=== PATIENT | female | born 1985 | race Hispanic/Latino ===

== ENCOUNTER 2022-02-19 20:14 | Outpatient (CLI) | payer OTHER ==
[2022-02-19 21:39] VITALS: BP 136/80
== END 2022-02-19 22:00 | disposition home or self-care (01) ==
LOC: TRG 20:14 → OB 20:15 → APU 20:34 → TRG 22:00
PROVIDERS: ATTEND Obstetrics & Gynecology
DX: O62.9 Abnormality of forces of labor, unspecified (principal); Z3A.38 38 weeks gestation of pregnancy
CPT/HCPCS: Q0177

== ENCOUNTER 2022-02-21 04:03 | Inpatient (IN) | payer OTHER ==
[2022-02-21] MEDS ORDERED: MINERAL OIL 30 ML ORAL LIQD PO PRN (06:30)
[2022-02-21] MEDS ORDERED: OXYTOCIN 10 UNIT/1 ML INJ IM PRN (06:30)
[2022-02-21] MEDS ORDERED: LIDOCAINE (2%) 20 MG/1 ML VIAL 20 ML MDV INFILTRATI ONE (06:30)
[2022-02-21] MEDS ORDERED: LOPERAMIDE 2 MG CAP PO PRN (06:30)
[2022-02-21] MEDS ORDERED: CARBOPROST TROMETHAMINE 250 MCG/1 ML INJ IM PRN (06:30)
[2022-02-21] MEDS ORDERED: TERBUTALINE 1 MG/1 ML INJ SUB-Q PRN (06:30)
[2022-02-21] MEDS ORDERED: fentaNYL 100 MCG/2 ML INJ IV PRN (06:30)
[2022-02-21] MEDS ORDERED: NalbUPHINE 10 MG/1 ML INJ IV PRN ×2 (06:30→08:57)
[2022-02-21] MEDS ORDERED: miSOPROStol 200 MCG TAB PR PRN (06:30)
[2022-02-21] MEDS ORDERED: ACETAMINOPHEN 325 MG TAB PO PRN ×2 (06:30→18:10)
[2022-02-21] MEDS ORDERED: METHYLERGONOVINE MALEATE 0.2 MG/ML VIAL IM PRN (06:30)
[2022-02-21] MEDS ORDERED: ONDANSETRON 4 MG/2 ML INJ IV PRN ×2 (06:30→08:57)
[2022-02-21] MEDS ORDERED: ePHEDrine SULFATE 50 MG/1 ML INJ IV PRN ×2 (06:30→08:57)
--- NOTE | 2022-02-21 06:30 | History and Physical Report ---
History of Present Illness Date of examination: 02/21/22 Date of admission: 02/21/2022 Chief complaint: Labor contractions History of present illness: EDC Calculations LMP: 03/01/2022 Past History : 2 Term Births: 0 Premature Births: 1 Living Children: 1 Para: 1 Mult. Births: 0 Prev : 0 Prev. attempt? 0 Aborta: 0 Elect. Ab: 0 Spont. 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 Quit 01/2020. 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 Quit 01/2020. Patient is single Infection History Hx of STD: gonorrhea HIV Risk Eval: no Hepatitis B Risk Eval: low risk Personal hx. of genital herpes: yes Rash, Viral, or Febrile illness since last LMP? no Varicella/Chicken Pox Status: Previous Disease TB Risk: no Genetic History Congenital Heart Defect: Mom: no Dad: no Leonie Disease: Mom: no Dad: no Thalassemia Mom: no Dad: no Neural Tube Defect Mom: no Dad: no Down's Syndrome Mom: no Dad: no Papi-Sachs Mom: no Dad: no Sickle Cell Disease/Trait Mom: no Dad: no Hemophilia Mom: no Dad: no Muscular Dystrophy Mom: no Dad: no Cystic Fibrosis Mom: no Dad: no Elizabeth Chorea Mom: no Dad: no Mental Retardation Mom: no Dad: no Fragile X Mom: no Dad: no Other Genetic/Chromosomal Disorder Mom: no Dad: no Child w/other defect Mom: no Dad: no Comments/Counseling: Pt's daughter has Emery's Syndrome Enviromental Exposures Enviromental Exposures Reviewed Xray Exposure: no Medication, drug, or alcohol use since LMP: no Chemical/Other Exposure: no Exposure to Cat Liter: yes Hx of Parvovirus (Fifth Disease): no Occupational Exposure to Children: none 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 Medications (reviewed today): None Current Allergies (reviewed today): * SULFUR (Critical) Past History Past Medical History: other (see HPI) Past Surgical History: other (see HPI) 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 (see HPI) Family/Genetic History: other (see HPI) - Obstetrical History Expected Date of Delivery: 03/01/22 Actual Gestation: 38 Week(s) 6 Day(s) : 2 Para: 1 Hx # Term Pregnancies: 0 Number of Pregnancies: 1 Spontaneous Abortions: 0 Induced : 0 Number of Living Children: 1 Medications and Allergies Allergies Allergy/AdvReac Type Severity Reaction Status Date / Time Sulfa (Sulfonamide Allergy Unknown Verified 02/21/22 04:45 Antibiotics) Review of Systems All systems: negative Gastrointestinal: abdominal pain (CTX) - Vital Signs Vital signs: Vital Signs Pulse BP Pulse Ox 99 H 144/94 95 02/21/22 04:39 02/21/22 04:39 02/21/22 04:39 Temp Pulse Resp BP Pulse Ox 98.0 F 96 H 16 139/88 97 02/21/22 04:47 02/21/22 06:21 02/21/22 04:47 02/21/22 06:13 02/21/22 06:21 - Physical Exam Breasts: Positive: normal Cardiovascular: Regular rate Lungs: Positive: Normal air movement Abdomen: Positive: normal appearance Genitourinary (Female): Positive: normal external genitalia, normal perenium Uterus: Positive: normal size, normal contour Anus/Rectum: Positive: normal perianal skin Extremities: Positive: normal Deep Tendon Reflex Grade: Normal +2 - Obstetrical FHR: category 1 Uterine Contraction Monitor Mode: External Cervical Dilatation: 4 Cervical Effacement Percentage: 50 station: -2 Uterine Contraction Pattern: Regular Uterine Tone Measurement Phase: Contraction Uterine Contraction Intensity: Moderate Results Result Diagrams: 02/21/22 07:44 02/21/22 07:44 All other labs normal. Assessment and Plan 36 y/o @ 38+6 weeks presented with painful ctx q4min, while in triage she changed her cervix from 2cms to 4cms. b/p noted to be elevated w/o hx of htn. no complaints of DAMON/visual changes or epigastric pain. - Patient Problems (1) 38 weeks gestation of Current Visit: Yes Status: Acute Plan to address problem: Expectant management Pain management (2) Elevated blood pressure reading Current Visit: Yes Status: Acute Plan to address problem: pre-e labs ordered will continue to monitor closely and treat accordingly.
[2022-02-21] MEDS ORDERED: OXYTOCIN DRIP 30 UNITS/500 ML BAG IV SCH ×2 (07:00)
[2022-02-21] MEDS: LACTATED RINGERS 1,000 ML IV SCH ×2 (08:20→09:14)
[2022-02-21 08:52] LABS: Alanine Aminotransferase 19 units/L (7-56); Uric Acid 3.6 mg/dL (3.5-7.6)
[2022-02-21] MEDS ORDERED: NALOXONE 2 MG/2 ML INJ IV PRN (08:57)
[2022-02-21] MEDS ORDERED: diphenhydrAMINE 50 MG/ML VIAL IV PRN (08:57)
[2022-02-21] MEDS ORDERED: fentaNYL-BUPIV 2 MCG/ML-0.125% 200 MCG/100 ML BAG EPIDURAL SCH (09:00)
[2022-02-21 09:04] LABS: Hematocrit 37.1 % (30.3-42.9); Hemoglobin 12.8 gm/dl (10.1-14.3); Mean Corpuscular HGB Conc 34 % (30-34); Mean Corpuscular Volume 97 fl (79-97); Platelet Count 234 K/mm3 (140-440); Red Blood Count 3.82 M/mm3 (3.65-5.03); Red Cell Distribution Width 15.2 % (13.2-15.2)
--- NOTE | 2022-02-21 09:37 | Anesthesia Consultation ---
Anesthesia Consult and Med Hx Date of service: 02/21/22 - Airway Anesthetic Teeth Evaluation: Good ROM Head & Neck: Adequate Mental/Hyoid Distance: Adequate Mallampati Class: Class II Intubation Access Assessment: Probably Good - Pulmonary Exam CTA: Yes - Cardiac Exam Cardiac Exam: RRR - Pre-Operative Health Status ASA Pre-Surgery Classification: ASA2 Proposed Anesthetic Plan: Epidural - Pulmonary Hx Smoking: No Hx Asthma: No COPD: No Hx Pneumonia: No Hx Sleep Apnea: No - Cardiovascular System Hx Hypertension: No Hx Heart Attack/AMI: No Hx Angina: No - Gastrointestinal Hx Gastroesophageal Reflux Disease: No - Endocrine Hx Renal Disease: No Hx End Stage Renal Disease: No Hx Liver Disease: No Hx Insulin Dependent Diabetes: No Hx Non-Insulin Dependent Diabetes: No - Other Systems Hx Alcohol Use: No Hx Obesity: Yes
--- NOTE | 2022-02-21 09:38 | Progress Note ---
Labor Epidural - Labor Epidural Start Time: 09:17 Stop Time: 09:33 Performed by:: ARACELI BORDEN (Kerry VILLEDA) Procedure: Patient is requesting epidural for labor and pain. H&P, labs were reviewed. Patient IDed, all questions and concerns were answered, and consent was signed. Timeout was performed at bedside. Patient in sitting position. Sterile prep and drape was performed. 3ml of 1% lidocaine skin wheal at L[3]- L [4]. 17-gau ge Tuohy epidural needle was advanced to loss of resistance with air technique 7cm. Negative CSF negative blood. Epidural catheter advanced to [12] centimeters. [negative] Aspiration [negative] test dose. Sterile dressing applied. Patient tolerated procedure.
--- NOTE | 2022-02-21 09:57 | Progress Note ---
Assessment and Plan Pt in bed, just recently received epidural. States ctx pain is better. SVE /-2 bloody show noted. Expectant management for now. Anticipate . CRISTINA Rios CNM - Patient Problems (1) 38 weeks gestation of Current Visit: Yes Status: Acute (2) Elevated blood pressure reading Current Visit: Yes Status: Acute Plan to address problem: pre-e labs ordered will continue to monitor closely and treat accordingly. Subjective - Subjective Date of service: 02/21/22 Principal diagnosis: IUP @ 39+6; labor Interval history: EDC Calculations LMP: 03/01/2022 Past History : 2 Term Births: 0 Premature Births: 1 Living Children: 1 Para: 1 Mult. Births: 0 Prev : 0 Prev. attempt? 0 Aborta: 0 Elect. Ab: 0 Spont. 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 Quit 01/2020. 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 Quit 01/2020. Patient is single Infection History Hx of STD: gonorrhea HIV Risk Eval: no Hepatitis B Risk Eval: low risk Personal hx. of genital herpes: yes Rash, Viral, or Febrile illness since last LMP? no Varicella/Chicken Pox Status: Previous Disease TB Risk: no Genetic History Congenital Heart Defect: Mom: no Dad: no Leonie Disease: Mom: no Dad: no Thalassemia Mom: no Dad: no Neural Tube Defect Mom: no Dad: no Down's Syndrome Mom: no Dad: no Papi-Sachs Mom: no Dad: no Sickle Cell Disease/Trait Mom: no Dad: no Hemophilia Mom: no Dad: no Muscular Dystrophy Mom: no Dad: no Cystic Fibrosis Mom: no Dad: no Elizabeth Chorea Mom: no Dad: no Mental Retardation Mom: no Dad: no Fragile X Mom: no Dad: no Other Genetic/Chromosomal Disorder Mom: no Dad: no Child w/other defect Mom: no Dad: no Comments/Counseling: Pt's daughter has Emery's Syndrome Enviromental Exposures Enviromental Exposures Reviewed Xray Exposure: no Medication, drug, or alcohol use since LMP: no Chemical/Other Exposure: no Exposure to Cat Liter: yes Hx of Parvovirus (Fifth Disease): no Occupational Exposure to Children: 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 Medications (reviewed today): None Current Allergies (reviewed today): * SULFUR (Critical) Patient reports: movement normal, no new complaints, no loss of fluid Objective - Vital Signs Vital Signs: Vital Signs - 12hr 02/21/22 02/21/22 02/21/22 04:39 04:44 04:47 Temperature 98.0 F Pulse Rate 99 H 101 H Respiratory 16 Rate Blood Pressure 144/94 O2 Sat by Pulse 95 96 Oximetry 02/21/22 02/21/22 02/21/22 04:49 04:54 04:59 Temperature Pulse Rate 95 H 97 H 98 H Respiratory Rate Blood Pressure O2 Sat by Pulse 97 97 97 Oximetry 02/21/22 02/21/22 02/21/22 05:04 05:11 05:13 Temperature Pulse Rate 99 H 93 H 92 H Respiratory Rate Blood Pressure 181/90 O2 Sat by Pulse 96 97 94 Oximetry 02/21/22 02/21/22 02/21/22 05:16 05:21 05:23 Temperature Pulse Rate 84 97 H 90 Respiratory Rate Blood Pressure 134/63 O2 Sat by Pulse 99 95 Oximetry 02/21/22 02/21/22 02/21/22 05:25 05:26 05:31 Temperature Pulse Rate 95 H 95 H 91 H Respiratory Rate Blood Pressure O2 Sat by Pulse 91 95 93 Oximetry 02/21/22 02/21/22 02/21/22 05:36 05:41 05:46 Temperature Pulse Rate 86 91 H 84 Respiratory Rate Blood Pressure O2 Sat by Pulse 98 96 98 Oximetry 02/21/22 02/21/22 02/21/22 05:47 05:51 05:56 Temperature Pulse Rate 89 86 80 Respiratory Rate Blood Pressure O2 Sat by Pulse 94 98 99 Oximetry 02/21/22 02/21/22 02/21/22 06:01 06:06 06:11 Temperature Pulse Rate 93 H 84 90 Respiratory Rate Blood Pressure O2 Sat by Pulse 97 98 97 Oximetry 02/21/22 02/21/22 02/21/22 06:12 06:13 06:16 Temperature Pulse Rate 81 87 96 H Respiratory Rate Blood Pressure 139/88 O2 Sat by Pulse 91 98 Oximetry 02/21/22 02/21/22 02/21/22 06:21 06:25 06:26 Temperature Pulse Rate 96 H 91 H 96 H Respiratory Rate Blood Pressure O2 Sat by Pulse 97 90 96 Oximetry 02/21/22 02/21/22 02/21/22 06:31 06:35 06:36 Temperature Pulse Rate 90 72 96 H Respiratory Rate Blood Pressure O2 Sat by Pulse 97 94 97 Oximetry 02/21/22 02/21/22 02/21/22 06:40 06:41 06:46 Temperature Pulse Rate 90 89 88 Respiratory Rate Blood Pressure O2 Sat by Pulse 94 95 97 Oximetry 02/21/22 02/21/22 02/21/22 06:51 06:56 07:01 Temperature Pulse Rate 84 96 H 95 H Respiratory Rate Blood Pressure O2 Sat by Pulse 97 97 97 Oximetry 02/21/22 02/21/22 02/21/22 08:50 09:15 09:31 Temperature Pulse Rate 70 85 74 Respiratory Rate Blood Pressure 180/100 125/81 O2 Sat by Pulse 98 Oximetry 02/21/22 02/21/22 02/21/22 09:32 09:34 09:36 Temperature Pulse Rate 81 85 88 Respiratory Rate Blood Pressure 137/75 140/77 O2 Sat by Pulse 97 Oximetry 02/21/22 02/21/22 02/21/22 09:37 09:38 09:40 Temperature Pulse Rate 90 91 H 98 H Respiratory Rate Blood Pressure 131/77 138/80 127/77 O2 Sat by Pulse 93 Oximetry 02/21/22 02/21/22 02/21/22 09:41 09:42 09:43 Temperature Pulse Rate 94 H 90 102 H Respiratory Rate Blood Pressure 126/71 O2 Sat by Pulse 96 93 Oximetry 02/21/22 02/21/22 02/21/22 09:44 09:46 09:48 Temperature Pulse Rate 90 94 H 95 H Respiratory Rate Blood Pressure 123/75 128/72 129/67 O2 Sat by Pulse 95 Oximetry 02/21/22 09:50 Temperature Pulse Rate 84 Respiratory Rate Blood Pressure 129/76 O2 Sat by Pulse 94 Oximetry - Exam Breasts: normal Abdomen: Present: normal appearance, soft FHR: category 1 Uterine Contraction Monitor Mode: External Cervical Dilatation: 6 Cervical Effacement Percentage: 90 station: -2 Uterine Contraction Duration: 60-90 Uterine Contraction Pattern: Regular Uterine Tone Measurement Phase: Resting Uterine Contraction Intensity: Moderate Extremities: normal - Labs Labs: Abnormal Labs 02/21/22 02/21/22 07:44 07:44 WBC 17.8 H MCH 33 H Creatinine 0.4 L Lactate Dehydrogenase 193 H Laboratory Results - last 24 hr 02/21/22 02/21/22 02/21/22 07:44 07:44 07:44 WBC 17.8 H RBC 3.82 Hgb 12.8 Hct 37.1 MCV 97 MCH 33 H MCHC 34 RDW 15.2 Plt Count 234 Creatinine 0.4 L Estimated GFR > 60 Uric Acid 3.6 AST 17 ALT 19 Lactate Dehydrogenase 193 H Blood Type A POSITIVE Antibody Screen Negative
[2022-02-21] MEDS ORDERED: LACTATED RINGERS 250 ML IV SOLN IV ONE (10:00)
--- NOTE | 2022-02-21 12:27 | Progress Note ---
Assessment and Plan Pt in bed resting quietly, no concerns at this time. Discussed AROM and IUPC to better monitor ctx. Agrees to plan of care. SVE /0, AROM clear, IUPC inserted without difficulty. Anticipate . CRISTINA Rios CNM - Patient Problems (1) 38 weeks gestation of Current Visit: Yes Status: Acute Plan to address problem: Expectant management Epidural for pain management AROM-Clear (2) Elevated blood pressure reading Current Visit: Yes Status: Acute Plan to address problem: will continue to monitor closely and treat accordingly. Subjective - Subjective Date of service: 02/21/22 Principal diagnosis: IUP @ 39+6; labor Interval history: EDC Calculations LMP: 03/01/2022 Past History : 2 Term Births: 0 Premature Births: 1 Living Children: 1 Para: 1 Mult. Births: 0 Prev : 0 Prev. attempt? 0 Aborta: 0 Elect. Ab: 0 Spont. 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 Quit 01/2020. 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 Quit 01/2020. Patient is single Infection History Hx of STD: gonorrhea HIV Risk Eval: no Hepatitis B Risk Eval: low risk Personal hx. of genital herpes: yes Rash, Viral, or Febrile illness since last LMP? no Varicella/Chicken Pox Status: Previous Disease TB Risk: no Genetic History Congenital Heart Defect: Mom: no Dad: no Leonie Disease: Mom: no Dad: no Thalassemia Mom: no Dad: no Neural Tube Defect Mom: no Dad: no Down's Syndrome Mom: no Dad: no Papi-Sachs Mom: no Dad: no Sickle Cell Disease/Trait Mom: no Dad: no Hemophilia Mom: no Dad: no Muscular Dystrophy Mom: no Dad: no Cystic Fibrosis Mom: no Dad: no Elizabeth Chorea Mom: no Dad: no Mental Retardation Mom: no Dad: no Fragile X Mom: no Dad: no Other Genetic/Chromosomal Disorder Mom: no Dad: no Child w/other defect Mom: no Dad: no Comments/Counseling: Pt's daughter has Emery's Syndrome Enviromental Exposures Enviromental Exposures Reviewed Xray Exposure: no Medication, drug, or alcohol use since LMP: no Chemical/Other Exposure: no Exposure to Cat Liter: yes Hx of Parvovirus (Fifth Disease): no Occupational Exposure to Children: none 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 (reviewed 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): None Current Allergies (reviewed today): * SULFUR (Critical) Patient reports: movement normal, no new complaints, no loss of fluid Objective - Vital Signs Vital Signs: Vital Signs - 12hr 02/21/22 02/21/22 02/21/22 04:39 04:44 04:47 Temperature 98.0 F Pulse Rate 99 H 101 H Respiratory 16 Rate Blood Pressure 144/94 O2 Sat by Pulse 95 96 Oximetry 02/21/22 02/21/22 02/21/22 04:49 04:54 04:59 Temperature Pulse Rate 95 H 97 H 98 H Respiratory Rate Blood Pressure O2 Sat by Pulse 97 97 97 Oximetry 02/21/22 02/21/22 02/21/22 05:04 05:11 05:13 Temperature Pulse Rate 99 H 93 H 92 H Respiratory Rate Blood Pressure 181/90 O2 Sat by Pulse 96 97 94 Oximetry 02/21/22 02/21/22 02/21/22 05:16 05:21 05:23 Temperature Pulse Rate 84 97 H 90 Respiratory Rate Blood Pressure 134/63 O2 Sat by Pulse 99 95 Oximetry 02/21/22 02/21/22 02/21/22 05:25 05:26 05:31 Temperature Pulse Rate 95 H 95 H 91 H Respiratory Rate Blood Pressure O2 Sat by Pulse 91 95 93 Oximetry 02/21/22 02/21/22 02/21/22 05:36 05:41 05:46 Temperature Pulse Rate 86 91 H 84 Respiratory Rate Blood Pressure O2 Sat by Pulse 98 96 98 Oximetry 02/21/22 02/21/22 02/21/22 05:47 05:51 05:56 Temperature Pulse Rate 89 86 80 Respiratory Rate Blood Pressure O2 Sat by Pulse 94 98 99 Oximetry 02/21/22 02/21/22 02/21/22 06:01 06:06 06:11 Temperature Pulse Rate 93 H 84 90 Respiratory Rate Blood Pressure O2 Sat by Pulse 97 98 97 Oximetry 02/21/22 02/21/22 02/21/22 06:12 06:13 06:16 Temperature Pulse Rate 81 87 96 H Respiratory Rate Blood Pressure 139/88 O2 Sat by Pulse 91 98 Oximetry 02/21/22 02/21/22 02/21/22 06:21 06:25 06:26 Temperature Pulse Rate 96 H 91 H 96 H Respiratory Rate Blood Pressure O2 Sat by Pulse 97 90 96 Oximetry 02/21/22 02/21/22 02/21/22 06:31 06:35 06:36 Temperature Pulse Rate 90 72 96 H Respiratory Rate Blood Pressure O2 Sat by Pulse 97 94 97 Oximetry 02/21/22 02/21/22 02/21/22 06:40 06:41 06:46 Temperature Pulse Rate 90 89 88 Respiratory Rate Blood Pressure O2 Sat by Pulse 94 95 97 Oximetry 02/21/22 02/21/22 02/21/22 06:51 06:56 07:01 Temperature Pulse Rate 84 96 H 95 H Respiratory Rate Blood Pressure O2 Sat by Pulse 97 97 97 Oximetry 02/21/22 02/21/22 02/21/22 08:50 09:15 09:31 Temperature Pulse Rate 70 85 74 Respiratory Rate Blood Pressure 180/100 125/81 O2 Sat by Pulse 98 Oximetry 02/21/22 02/21/22 02/21/22 09:32 09:34 09:36 Temperature Pulse Rate 81 85 88 Respiratory Rate Blood Pressure 137/75 140/77 O2 Sat by Pulse 97 Oximetry 02/21/22 02/21/22 02/21/22 09:37 09:38 09:40 Temperature Pulse Rate 90 91 H 98 H Respiratory Rate Blood Pressure 131/77 138/80 127/77 O2 Sat by Pulse 93 Oximetry 02/21/22 02/21/22 02/21/22 09:41 09:42 09:43 Temperature Pulse Rate 94 H 90 102 H Respiratory Rate Blood Pressure 126/71 O2 Sat by Pulse 96 93 Oximetry 02/21/22 02/21/22 02/21/22 09:44 09:46 09:48 Temperature Pulse Rate 90 94 H 95 H Respiratory Rate Blood Pressure 123/75 128/72 129/67 O2 Sat by Pulse 95 Oximetry 02/21/22 02/21/22 02/21/22 09:50 09:51 09:53 Temperature Pulse Rate 84 110 H 93 H Respiratory Rate Blood Pressure 129/76 113/59 O2 Sat by Pulse 94 95 Oximetry 02/21/22 02/21/22 02/21/22 09:56 09:58 10:01 Temperature Pulse Rate 102 H 97 H 104 H Respiratory Rate Blood Pressure 114/58 O2 Sat by Pulse 98 97 Oximetry 02/21/22 02/21/22 02/21/22 10:05 10:06 10:08 Temperature Pulse Rate 93 H 101 H 98 H Respiratory Rate Blood Pressure 111/63 114/71 O2 Sat by Pulse 98 Oximetry 02/21/22 02/21/22 02/21/22 10:11 10:14 10:16 Temperature Pulse Rate 95 H 103 H 95 H Respiratory Rate Blood Pressure O2 Sat by Pulse 98 93 97 Oximetry 02/21/22 02/21/22 02/21/22 10:19 10:20 10:21 Temperature Pulse Rate 67 110 H 92 H Respiratory Rate Blood Pressure 74/41 O2 Sat by Pulse 78 L 97 Oximetry 02/21/22 02/21/22 02/21/22 10:27 10:32 10:34 Temperature Pulse Rate 95 H 95 H 69 Respiratory Rate Blood Pressure O2 Sat by Pulse 99 98 73 L Oximetry 02/21/22 02/21/22 02/21/22 10:37 10:39 10:42 Temperature Pulse Rate 85 111 H 99 H Respiratory Rate Blood Pressure 89/51 O2 Sat by Pulse 97 89 100 Oximetry 02/21/22 02/21/22 02/21/22 10:43 10:47 10:51 Temperature Pulse Rate 97 H 100 H 100 H Respiratory Rate Blood Pressure 85/48 77/48 O2 Sat by Pulse 100 Oximetry 02/21/22 02/21/22 02/21/22 10:52 10:53 10:55 Temperature Pulse Rate 92 H 94 H 108 H Respiratory Rate Blood Pressure 83/50 86/40 O2 Sat by Pulse 99 Oximetry 02/21/22 02/21/22 02/21/22 10:57 10:59 11:02 Temperature Pulse Rate 92 H 89 101 H Respiratory Rate Blood Pressure 93/44 O2 Sat by Pulse 99 100 Oximetry 02/21/22 02/21/22 02/21/22 11:05 11:07 11:10 Temperature Pulse Rate 109 H 101 H 103 H Respiratory Rate Blood Pressure 123/61 115/67 O2 Sat by Pulse 100 Oximetry 02/21/22 02/21/22 02/21/22 11:12 11:14 11:15 Temperature Pulse Rate 91 H 86 97 H Respiratory Rate Blood Pressure 114/60 O2 Sat by Pulse 100 93 Oximetry 02/21/22 02/21/22 02/21/22 11:17 11:19 11:22 Temperature Pulse Rate 95 H 87 98 H Respiratory Rate Blood Pressure 119/60 O2 Sat by Pulse 86 100 Oximetry 02/21/22 02/21/22 02/21/22 11:23 11:24 11:27 Temperature Pulse Rate 102 H 106 H 99 H Respiratory Rate Blood Pressure 112/58 O2 Sat by Pulse 94 100 Oximetry 02/21/22 02/21/22 02/21/22 11:28 11:32 11:35 Temperature Pulse Rate 100 H 98 H 97 H Respiratory Rate Blood Pressure 112/64 118/61 O2 Sat by Pulse 98 Oximetry 02/21/22 02/21/22 02/21/22 11:37 11:38 11:42 Temperature Pulse Rate 105 H 99 H 103 H Respiratory Rate Blood Pressure 121/68 O2 Sat by Pulse 99 100 Oximetry 02/21/22 02/21/22 02/21/22 11:44 11:47 11:49 Temperature Pulse Rate 94 H 104 H 114 H Respiratory Rate Blood Pressure 120/69 111/72 O2 Sat by Pulse 100 71 L Oximetry 02/21/22 02/21/22 02/21/22 11:52 11:54 11:57 Temperature Pulse Rate 109 H 110 H 130 H Respiratory Rate Blood Pressure 120/60 O2 Sat by Pulse 99 97 Oximetry 02/21/22 02/21/22 02/21/22 11:58 12:02 12:03 Temperature Pulse Rate 123 H 110 H 116 H Respiratory Rate Blood Pressure 119/73 116/71 O2 Sat by Pulse 100 87 Oximetry 02/21/22 02/21/22 02/21/22 12:07 12:08 12:12 Temperature Pulse Rate 100 H 114 H 108 H Respiratory Rate Blood Pressure 119/65 O2 Sat by Pulse 100 100 Oximetry 02/21/22 02/21/22 02/21/22 12:13 12:17 12:19 Temperature Pulse Rate 103 H 115 H 106 H Respiratory Rate Blood Pressure 125/70 127/62 O2 Sat by Pulse 100 Oximetry - Exam Breasts: normal Abdomen: Present: normal appearance, soft. Absent: distention, tenderness Vulva: both: normal Uterus: Present: normal, other (gravid) FHR: category 1 Uterine Contraction Monitor Mode: Internal Cervical Dilatation: 9 Cervical Effacement Percentage: 100 station: 0 Uterine Contraction Frequency (min): q2-4mins Uterine Contraction Duration: 80-100 Uterine Contraction Pattern: Regular Uterine Tone Measurement Phase: Contraction Uterine Contraction Intensity: Moderate Extremities: normal - Labs Labs: Abnormal Labs 02/21/22 02/21/22 07:44 07:44 WBC 17.8 H MCH 33 H Creatinine 0.4 L Lactate Dehydrogenase 193 H Laboratory Results - last 24 hr 02/21/22 02/21/22 02/21/22 07:44 07:44 07:44 WBC 17.8 H RBC 3.82 Hgb 12.8 Hct 37.1 MCV 97 MCH 33 H MCHC 34 RDW 15.2 Plt Count 234 Creatinine Estimated GFR Uric Acid AST ALT Lactate Dehydrogenase Syphilis IgG/IgM Ab Nonreactive Blood Type A POSITIVE Antibody Screen Negative 02/21/22 07:44 WBC RBC Hgb Hct MCV MCH MCHC RDW Plt Count Creatinine 0.4 L Estimated GFR > 60 Uric Acid 3.6 AST 17 ALT 19 Lactate Dehydrogenase 193 H Syphilis IgG/IgM Ab Blood Type Antibody Screen
--- NOTE | 2022-02-21 14:07 | Procedure Note ---
OB Delivery Note - Delivery Date of Delivery: 02/21/22 Ship Rigger: VEL ACEVES (CRISTINA Rios) Estimated blood loss: 100cc - Vaginal Delivery presentation: vertex Delivery position: OA Intrapartum events: none Delivery induction: none Delivery augmentation: rupture of membranes, pitocin Delivery monitor: external FHT, internal uterine Route of delivery: Delivery placenta: spontaneous Delivery cord: nuchal cord, 3 umbilical vessels Episiotomy: none Delivery laceration: 1st degree Delivery repair: vicryl Anesthesia: epidural Delivery comments: of a viable Baby boy. ANIBAL presentation, R shoulder anterior. Nuchal x1 delivered through. Shoulders and body delivered with ease. Baby placed on mom's ABD skin to skin. Cord clamped after cessations of pulsation then cut by FOC. Placenta delivered spontaneous intact and complete with 3 vessel cord. Uterine tone firm with massage and IV pitocin. Vagina and perineum inspected, 1st degree lac repaired and hemostasis noted. EBL 100. Baby boy wgt 8lb 9oz APGARS 9/9. Mom and baby boy LDR stable. CRISTINA Rios - A at 1 minute: 9 (wgt 8lbs 9oz) at 5 minutes: 9 Gender: Male (8#9)
[2022-02-21] MEDS ORDERED: PROMETHAZINE 25 MG TAB PO PRN (18:10)
[2022-02-21] MEDS ORDERED: WITCH HAZEL/ GLYCERIN PAD TP PRN (18:10)
[2022-02-21] MEDS ORDERED: MAGNESIUM HYDROXIDE (MOM) ORAL LIQD UDC PO PRN (18:10)
[2022-02-21] MEDS ORDERED: BENZOCAINE/MENTHOL 20/0.5% TOP SPRAY 56 GM TP PRN (18:10)
[2022-02-21] MEDS ORDERED: LANOLIN/ZINC/DIMETHICONE (LANSINOH) 7 GM TP PRN (18:10)
[2022-02-21] MEDS ORDERED: diphenhydrAMINE 25 MG CAP PO PRN (18:10)
[2022-02-21] MEDS: IBUPROFEN 800 MG TAB PO SCH ×2 (18:51→23:29)
[2022-02-21] MEDS: FERROUS SULFATE 325 MG TAB PO SCH (21:38)
[2022-02-21] MEDS: DOCUSATE SODIUM 100 MG CAP PO SCH (21:38)
[2022-02-22 02:40] LABS: Hematocrit 33.9 % (30.3-42.9); Hemoglobin 11.4 gm/dl (10.1-14.3)
[2022-02-22] MEDS: IBUPROFEN 800 MG TAB PO SCH ×2 (05:49→15:25)
--- NOTE | 2022-02-22 09:38 | Progress Note ---
Assessment and Plan Pt reports ambulating, voiding, and eating without difficulties. Denies DAMON, vision changes, and RUQ pain. education and support given. Reviewed relief measures for nipple tenderness with . Precautions reviewed. consult requested. H&H stable, VSSAF since delivery and preeclampsia labs WNL. Discussed POC to discharge home tomorrow if continues stable and no ssx of worsening status. Pt verbalizes understanding and reports desires to discharge home this afternoon. Risks with elevated blood pressure d/w pt and continued hospitalization for monitoring advised. Pt verbalizes understanding. - Patient Problems (1) (normal spontaneous vaginal delivery) Current Visit: Yes Status: Acute (2) Elevated blood pressure reading Current Visit: No Status: Acute Subjective - Subjective Date of service: 02/22/22 Principal diagnosis: s/p Patient reports: appetite normal, voiding normally, pain well controlled, ambulating normally Willards: doing well, nursing well Objective - Vital Signs Latest vital signs: Vital Signs Temp Pulse Resp BP BP Pulse Ox Pulse Ox 02/22/22 05:49 20 02/22/22 00:37 98.2 F 88 20 127/70 97 02/21/22 23:29 20 02/21/22 20:23 97.7 F 97 H 20 130/79 97 02/21/22 20:05 98 02/21/22 17:50 98.6 F 114 H 18 128/82 98 98 02/21/22 17:30 125 H 93 02/21/22 17:27 108 H 95 02/21/22 17:22 112 H 95 02/21/22 17:17 108 H 96 02/21/22 17:12 110 H 96 02/21/22 17:07 111 H 96 02/21/22 17:02 120 H 96 02/21/22 16:59 113 H 139/81 02/21/22 16:57 115 H 96 02/21/22 16:52 113 H 96 02/21/22 16:47 121 H 95 02/21/22 16:44 115 H 121/63 02/21/22 16:42 112 H 96 02/21/22 16:37 122 H 97 02/21/22 16:32 106 H 97 02/21/22 16:29 102 H 121/57 94 02/21/22 16:27 115 H 96 02/21/22 16:22 106 H 95 02/21/22 16:17 108 H 96 02/21/22 16:14 106 H 115/59 02/21/22 16:12 123 H 96 02/21/22 16:07 118 H 96 02/21/22 16:05 113 H 94 02/21/22 16:02 110 H 96 02/21/22 15:59 109 H 115/57 02/21/22 15:57 95 H 95 02/21/22 15:55 113 H 94 02/21/22 15:52 106 H 97 02/21/22 15:47 113 H 97 02/21/22 15:45 102 H 126/60 02/21/22 15:42 106 H 96 02/21/22 15:38 99 H 94 02/21/22 15:37 111 H 95 02/21/22 15:32 110 H 95 02/21/22 15:29 106 H 119/64 93 02/21/22 15:27 103 H 95 02/21/22 15:22 103 H 95 02/21/22 15:17 94 H 95 02/21/22 15:14 101 H 116/53 90 02/21/22 15:12 101 H 95 02/21/22 15:07 105 H 96 02/21/22 15:02 98 H 96 02/21/22 15:00 101 H 108/67 02/21/22 14:57 105 H 96 02/21/22 14:52 111 H 97 02/21/22 14:47 94 H 97 02/21/22 14:44 104 H 115/55 02/21/22 14:42 106 H 98 02/21/22 14:37 107 H 91 02/21/22 14:32 104 H 96 02/21/22 14:29 95 H 113/68 02/21/22 14:27 104 H 99 02/21/22 14:22 107 H 99 02/21/22 14:17 114 H 98 02/21/22 14:14 108 H 100/56 02/21/22 14:12 105 H 98 02/21/22 14:07 111 H 100 02/21/22 14:06 108 H 90 02/21/22 14:02 112 H 99 02/21/22 13:59 104 H 115/59 02/21/22 13:57 113 H 98 02/21/22 13:52 114 H 100 02/21/22 13:47 111 H 99 02/21/22 13:44 105 H 113/55 92 02/21/22 13:42 106 H 98 02/21/22 13:39 101 H 155/97 02/21/22 13:37 103 H 96 02/21/22 13:33 75 73 L 02/21/22 13:32 68 97 02/21/22 13:30 118 H 130/64 02/21/22 13:27 113 H 82 L 02/21/22 13:22 117 H 99 02/21/22 13:19 130 H 137/62 02/21/22 13:17 114 H 100 02/21/22 13:14 102 H 137/69 02/21/22 13:12 96 H 100 02/21/22 13:09 115 H 113/66 02/21/22 13:07 108 H 100 02/21/22 13:04 109 H 118/57 02/21/22 13:02 106 H 100 02/21/22 13:00 106 H 110/63 02/21/22 12:57 105 H 100 02/21/22 12:55 106 H 131/70 02/21/22 12:52 111 H 99 02/21/22 12:50 103 H 105/51 02/21/22 12:49 111 H 67 L 02/21/22 12:47 108 H 95 02/21/22 12:43 111 H 97/52 02/21/22 12:42 103 H 100 02/21/22 12:40 110 H 103/54 02/21/22 12:39 95 H 91 02/21/22 12:37 109 H 100 02/21/22 12:34 118 H 93/45 02/21/22 12:32 114 H 98 02/21/22 12:28 104 H 101/50 02/21/22 12:27 105 H 100 02/21/22 12:25 106 H 103/51 02/21/22 12:22 109 H 99 02/21/22 12:19 106 H 127/62 02/21/22 12:17 115 H 100 02/21/22 12:13 103 H 125/70 02/21/22 12:12 108 H 100 02/21/22 12:08 114 H 119/65 02/21/22 12:07 100 H 100 02/21/22 12:03 116 H 116/71 87 02/21/22 12:02 110 H 100 02/21/22 11:58 123 H 119/73 02/21/22 11:57 130 H 97 02/21/22 11:54 110 H 120/60 02/21/22 11:52 109 H 99 02/21/22 11:49 114 H 111/72 71 L 02/21/22 11:47 104 H 100 02/21/22 11:44 94 H 120/69 02/21/22 11:42 103 H 100 02/21/22 11:38 99 H 121/68 02/21/22 11:37 105 H 99 02/21/22 11:35 97 H 118/61 02/21/22 11:32 98 H 98 02/21/22 11:28 100 H 112/64 02/21/22 11:27 99 H 100 02/21/22 11:24 106 H 94 02/21/22 11:23 102 H 112/58 02/21/22 11:22 98 H 100 02/21/22 11:19 87 119/60 02/21/22 11:17 95 H 86 02/21/22 11:15 97 H 93 02/21/22 11:14 86 114/60 02/21/22 11:12 91 H 100 02/21/22 11:10 103 H 115/67 02/21/22 11:07 101 H 100 02/21/22 11:05 109 H 123/61 02/21/22 11:02 101 H 100 02/21/22 10:59 89 93/44 02/21/22 10:57 92 H 99 02/21/22 10:55 108 H 86/40 02/21/22 10:53 94 H 83/50 02/21/22 10:52 92 H 99 02/21/22 10:51 100 H 77/48 02/21/22 10:47 100 H 100 02/21/22 10:43 97 H 85/48 02/21/22 10:42 99 H 100 02/21/22 10:39 111 H 89/51 89 02/21/22 10:37 85 97 02/21/22 10:34 69 73 L 02/21/22 10:32 95 H 98 02/21/22 10:27 95 H 99 02/21/22 10:21 92 H 97 02/21/22 10:20 110 H 74/41 02/21/22 10:19 67 78 L 02/21/22 10:16 95 H 97 02/21/22 10:14 103 H 93 02/21/22 10:11 95 H 98 02/21/22 10:08 98 H 114/71 02/21/22 10:06 101 H 98 02/21/22 10:05 93 H 111/63 02/21/22 10:01 104 H 97 02/21/22 09:58 97 H 114/58 02/21/22 09:56 102 H 98 02/21/22 09:53 93 H 113/59 02/21/22 09:51 110 H 95 02/21/22 09:50 84 129/76 94 02/21/22 09:48 95 H 129/67 02/21/22 09:46 94 H 128/72 95 02/21/22 09:44 90 123/75 02/21/22 09:43 102 H 93 02/21/22 09:42 90 126/71 02/21/22 09:41 94 H 96 02/21/22 09:40 98 H 127/77 02/21/22 09:38 91 H 138/80 Intake and Output 02/21/22 02/22/22 02/22/22 23:59 07:59 15:59 Intake Total 480 480 Output Total 500 Balance -20 480 Intake: Oral 480 480 Output: Urine 500 Void 500 Other: Total, Intake Amount 240 240 Total, Output Amount 200 # Voids Void 1 - Exam Breasts: Present: , other (nipples pink and tender) Lungs: Present: Normal air movement Abdomen: Present: normal appearance, soft. Absent: distention Vulva: both: normal, laceration/episiotomy Uterus: Present: normal, firm Extremities: Present: normal - Labs Labs: scant lochia on peripad
[2022-02-22] MEDS ORDERED: PRENATAL VIT27-FE FUMARATE-FOLIC ACID VIT TAB PO SCH (10:00)
--- NOTE | 2022-02-22 11:56 | Post Anesthesia Evaluation ---
- Post Anesthesia Evaluation Patient Participated: Yes Airway Patent: Yes Stable Respiratory Function: Yes Nausea/Vomiting: No Temp > 96.8F: Yes Pain Manageable: Yes Adequeate Hydration: Yes Anesthesia Complications: No Block Receding Appropriately: Yes Patient on Ventilator: No
[2022-02-22] MEDS ORDERED: TETANUS,DIPH,PERTUSS(ACELL) VACCINE 0.5 ML SYRINGE IM ONE (13:52)
[2022-02-22] MEDS: DOCUSATE SODIUM 100 MG CAP PO SCH (15:24)
[2022-02-22] MEDS: FERROUS SULFATE 325 MG TAB PO SCH (15:24)
[2022-02-23] MEDS: IBUPROFEN 800 MG TAB PO SCH ×3 (00:33→13:06)
--- NOTE | 2022-02-23 08:35 | Progress Note ---
Assessment and Plan patient reports frustration with vital records and berastfeeding vs bottle feeding d/t baby needing to be under bili lights. reassured, will get to see patient today. reviewed b/p's - pt denies s/s pre-e. discussed addition of labetalol and if tolerated will consider d/c home today. patient would like d/c home today. post delivery H&H stable. All questions addressed. - Patient Problems (1) Elevated blood pressure reading Current Visit: No Status: Acute Plan to address problem: pt denies DAMON/visual changes/epigastric pain suspect GHTN Will repeat pre-e labs and start labetalol 100mg PO BID today. Will consider d/c home with 1 wk f/u if pt tolerates labetalol (2) (normal spontaneous vaginal delivery) Current Visit: Yes Status: Acute Plan to address problem: continue pathway Subjective - Subjective Date of service: 02/23/22 Principal diagnosis: spostpartum day #2 s/p Interval history: EDC Calculations LMP: 03/01/2022 Past History : 2 Term Births: 0 Premature Births: 1 Living Children: 1 Para: 1 Mult. Births: 0 Prev : 0 Prev. attempt? 0 Aborta: 0 Elect. Ab: 0 Spont. 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 Quit 01/2020. 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 Quit 01/2020. Patient is single Infection History Hx of STD: gonorrhea HIV Risk Eval: no Hepatitis B Risk Eval: low risk Personal hx. of genital herpes: yes Rash, Viral, or Febrile illness since last LMP? no Varicella/Chicken Pox Status: Previous Disease TB Risk: no Genetic History Congenital Heart Defect: Mom: no Dad: no Leonie Disease: Mom: no Dad: no Thalassemia Mom: no Dad: no Neural Tube Defect Mom: no Dad: no Down's Syndrome Mom: no Dad: no Papi-Sachs Mom: no Dad: no Sickle Cell Disease/Trait Mom: no Dad: no Hemophilia Mom: no Dad: no Muscular Dystrophy Mom: no Dad: no Cystic Fibrosis Mom: no Dad: no Elizabeth Chorea Mom: no Dad: no Mental Retardation Mom: no Dad: no Fragile X Mom: no Dad: no Other Genetic/Chromosomal Disorder Mom: no Dad: no Child w/other defect Mom: no Dad: no Comments/Counseling: Pt's daughter has Emery's Syndrome Enviromental Exposures Enviromental Exposures Reviewed Xray Exposure: no Medication, drug, or alcohol use since LMP: no Chemical/Other Exposure: no Exposure to Cat Liter: yes Hx of Parvovirus (Fifth Disease): no Occupational Exposure to Children: none 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 (reviewed today): None Current Allergies (reviewed today): * SULFUR (Critical) Patient reports: appetite normal, voiding normally, pain well controlled, ambulating normally, no dizzy ambulation, no nauseated : doing well, bottle feeding (breast and bottle feeding) Objective - Vital Signs Latest vital signs: Vital Signs Temp Pulse Resp BP BP Pulse Ox Pulse Ox 02/23/22 08:14 85 143/77 02/23/22 05:02 97.7 F 87 17 126/80 97 02/23/22 00:24 98.0 F 88 18 149/94 97 02/22/22 20:20 99 02/22/22 16:35 97.9 F 96 H 20 132/70 99 Intake and Output 02/22/22 02/23/22 02/23/22 23:59 07:59 15:59 Intake Total 640 200 Balance 640 200 Intake: Oral 640 200 Other: Total, Intake Amount 320 200 # Voids Void 1 1 - Exam Breasts: Present: normal, Cardiovascular: Present: Regular rate Lungs: Present: Clear to auscultation, Normal air movement Abdomen: Present: normal appearance, soft. Absent: distention, tenderness Vulva: both: laceration/episiotomy (healing well) Uterus: Present: normal, firm, fundal height below umbilicus Extremities: Present: normal
[2022-02-23] MEDS: DOCUSATE SODIUM 100 MG CAP PO SCH (10:20)
[2022-02-23] MEDS: FERROUS SULFATE 325 MG TAB PO SCH (10:20)
[2022-02-23 11:20] LABS: Hematocrit 31.5 % (30.3-42.9); Hemoglobin 10.7 gm/dl (10.1-14.3); Mean Corpuscular HGB Conc 34 % (30-34); Mean Corpuscular Volume 98 fl (79-97); Platelet Count 235 K/mm3 (140-440); Red Blood Count 3.23 M/mm3 (3.65-5.03); Red Cell Distribution Width 14.9 % (13.2-15.2)
[2022-02-23 11:45] LABS: Alanine Aminotransferase 19 units/L (7-56); Uric Acid 4.8 mg/dL (3.5-7.6)
--- NOTE | 2022-02-23 15:44 | Discharge Summary ---
Providers - Providers Date of Admission: 02/21/22 06:30 Date of discharge: 02/23/22 Attending physician: PAGE WEATHERS MD 02/21/22 18:10 Consult to Mid Level Java Developer [CONS] Routine Reason For Exam: assistance with , SNS Primary care physician: KAREN PEREZ Hospitalization Reason for admission: active labor Delivery: Episiotomy: none Laceration: 1st degree Incision: normal, intact Other procedures: none complications: other (GHTN) Discharge diagnosis: IUP at term delivered baby: male Pertinent studies: post delivery H&H 11.4/33.9 Hospital course: uncomplicated and course Condition at discharge: Good Disposition: 01 HOME / SELF CARE / HOMELESS - Discharge Diagnoses (1) (normal spontaneous vaginal delivery) Status: Acute (2) Gestational hypertension Status: Acute Qualifiers: Trimester: third trimester Qualified Code(s): O13.3 - Gestational [-induced] hypertension without significant proteinuria, third trimester Plan - Discharge Medications Prescriptions: Lidocain2.5%/Prilocai2.5% [Emla] 5 gm TP ONCE PRN #1 tube PRN Reason: Pain labetaloL [Labetalol 100mg TAB] 100 mg PO BID #60 tab Ibuprofen [Motrin 800 MG tab] 800 mg PO Q8HR PRN #30 tablet PRN Reason: Pain - Provider Discharge Summary Activity: routine, no sex for 6 weeks, no heavy lifting 4 weeks, no strenuous exercise Diet: routine Instructions: routine Additional instructions: [] Smoking cessation referral if applicable(refer to patient education folder for contact #) [] Refer to [facility] Booklet Call your doctor immediately for: * Fever > 100.5 * Heavy vaginal bleeding ( >1 pad per hour) * Severe persistent headache * Shortness of breath * Reddened, hot, painful area to leg or breast * Drainage or odor from incision. * Keep incision clean and dry at all times and follow doctor's instructions regarding bathing/showering - Follow up plan Follow up: KAREN PEREZ MD [Primary Care Provider] - 7 Days (Congratulations! please call [phone] to schedule your blood pressure check and your son's circumcision in 1 week. bring EMLA to your son's appointment. call for any complaints of headache, visual changes or upper abdominal pain.)
[2022-02-23 16:15] VITALS: BP 125/64
== END 2022-02-23 16:30 | disposition home or self-care (01) | DRG 775 ==
LOC: TRG 04:03 → APU 04:05 → LD 06:30 → TRG 06:30 → OB 18:01
PROVIDERS: ADMIT Student in an Organized Health Care Education/Training Program; ATTEND Student in an Organized Health Care Education/Training Program
PROC: 10E0XZZ Delivery of Products of Conception, External Approach (ICD-10-PCS; principal; 2022-02-21)
PROC: 10907ZC Drainage of Amniotic Fluid, Therapeutic from Products of Conception, Via Natural or Artificial Opening (ICD-10-PCS; 2022-02-21)
PROC: 0HQ9XZZ Repair Perineum Skin, External Approach (ICD-10-PCS; 2022-02-21)
PROC: 3E0R3BZ Introduction of Anesthetic Agent into Spinal Canal, Percutaneous Approach (ICD-10-PCS; 2022-02-21)
PROC: 00HU33Z Insertion of Infusion Device into Spinal Canal, Percutaneous Approach (ICD-10-PCS; 2022-02-21)
DX: O69.81X0 Labor and delivery complicated by cord around neck, without compression, not applicable or unspecified (principal); Z3A.38 38 weeks gestation of pregnancy; Z37.0 Single live birth; Z20.822 Contact with and (suspected) exposure to COVID-19; O99.214 Obesity complicating childbirth; O70.0 First degree perineal laceration during delivery; O13.4 Gestational [pregnancy-induced] hypertension without significant proteinuria, complicating childbirth
CPT/HCPCS: 36415; 59025; 82565; 83615; 84450; 84460; 84550; 85014; 85018; 85027; 86592; 86850; 86900; 86901; 90715; 96360; G0378; J3490; J7121; J3010; J7120; Q0177; U0003